=== PATIENT | male | born 1980 | race Caucasian/White ===

== ENCOUNTER → 2018-03-29 | Outpatient (CLI) | payer OTHER | LOC: RAD 09:56 | DX: E04.1 Nontoxic single thyroid nodule (principal) ==

== ENCOUNTER → 2018-07-15 | Outpatient (CLI) | payer OTHER | LOC: VAS 11:02 | DX: I08.1 Rheumatic disorders of both mitral and tricuspid valves (principal) ==

== ENCOUNTER → 2019-04-03 | Outpatient (CLI) | payer OTHER | LOC: LAB 07:08 | DX: L30.9 Dermatitis, unspecified (principal); E83.40 Disorders of magnesium metabolism, unspecified; R53.83 Other fatigue ==

== ENCOUNTER → 2019-05-08 | Outpatient (CLI) | payer OTHER | LOC: RAD 12:00 | DX: M17.12 Unilateral primary osteoarthritis, left knee (principal) ==